=== PATIENT | male | born 1955 | race Caucasian/White ===

== ENCOUNTER → 2020-05-05 | Outpatient (CLI) | payer BC ==
[2020-05-05 08:36] LABS: URINE WBC 0 /hpf (0-3)
[2020-05-05 08:57] LABS: HEMATOCRIT 44.3 % (42.0-52.0); HEMOGLOBIN 14.4 g/dL (13.5-18.0); MEAN CELL VOLUME 83 fl (78-100); MEAN CORPUSCULAR HEMOGLOBIN 27 pg (27-31); MEAN CORPUSCULAR HGB CONC 33 g/dL (33-37); MEAN PLATELET VOLUME 11.6 fl (7.4-10.4); PLATELET COUNT 210 K/mm3 (130-400); RED BLOOD COUNT 5.37 M/mm3 (4.20-5.60); RED CELL DISTRIBUTION WIDTH 13.8 % (11.5-14.5); WHITE BLOOD COUNT 5.3 K/mm3 (4.8-10.8)
[2020-05-05 09:03] LABS: ALBUMIN 4.3 g/dL (3.4-4.8); POTASSIUM 4.2 mmol/L (3.5-5.1)
[2020-05-05 09:04] LABS: CALCIUM 9.4 mg/dL (8.3-10.5)
[2020-05-05 09:06] LABS: TOTAL PROTEIN 7.3 g/dL (6.2-8.1)
[2020-05-05 09:08] LABS: TOTAL BILIRUBIN 0.5 mg/dL (0.2-1.2)
[2020-05-05 09:12] LABS: MAGNESIUM 1.76 mg/dL (1.60-2.60)
[2020-05-05 09:17] LABS: URINE APPEARANCE CLEAR; URINE BILIRUBIN NEGATIVE (NEGATIVE); URINE BLOOD NEGATIVE (NEGATIVE); URINE COLOR YELLOW; URINE GLUCOSE NEGATIVE (NEGATIVE); URINE KETONE NEGATIVE (NEGATIVE); URINE LEUKOCYTE ESTERASE NEGATIVE (NEGATIVE); URINE NITRATE NEGATIVE (NEGATIVE); URINE PROTEIN(semi-quant) TRACE mg/dL (NEGATIVE); URINE UROBILINOGEN NORMAL (NORMAL)
[2020-05-05 10:06] LABS: LYMPHOCYTE 33 % (20-51); MONOCYTE 10 % (3-10); NEUTROPHILS 56 % (42-75)
[2020-05-05 12:16] LABS: ERYTHROCYTE SEDIMENTATION RATE 6 mm/hr (0-20)
[2020-05-05 22:56] LABS: TESTOSTERONE 362 ng/dL (221-716)
== END ==
LOC: LAB 08:25
PROVIDERS: Internal Medicine
DX: Z12.11 Encounter for screening for malignant neoplasm of colon (principal); Z12.5 Encounter for screening for malignant neoplasm of prostate; E11.9 Type 2 diabetes mellitus without complications; E78.2 Mixed hyperlipidemia; K90.9 Intestinal malabsorption, unspecified; N52.9 Male erectile dysfunction, unspecified; Z86.79 Personal history of other diseases of the circulatory system

== ENCOUNTER → 2020-05-09 | Outpatient (CLI) | payer MEDICARE, BC | LOC: LAB 13:38 | DX: Z12.11 Encounter for screening for malignant neoplasm of colon (principal) ==

== ENCOUNTER → 2020-08-22 | Outpatient (CLI) | payer MEDICARE, BC ==
[2020-08-22 07:15] LABS: BASO # 0.03 (0.02-0.10); EOS # 0.16 (0.04-0.40); HEMATOCRIT 40.4 % (42.0-52.0); HEMOGLOBIN 13.4 g/dL (13.5-18.0); LYMPH# 1.52 (1.50-4.00); MEAN CELL VOLUME 84 fl (78-100); MEAN CORPUSCULAR HEMOGLOBIN 28 pg (27-31); MEAN CORPUSCULAR HGB CONC 33 g/dL (33-37); MEAN PLATELET VOLUME 11.2 fl (7.4-10.4); MONO # 0.53 (0.20-0.80); NEU # 3.16 (1.40-6.50); PLATELET COUNT 186 K/mm3 (130-400); RED BLOOD COUNT 4.84 M/mm3 (4.20-5.60); RED CELL DISTRIBUTION WIDTH 13.7 % (11.5-14.5); WHITE BLOOD COUNT 5.4 K/mm3 (4.8-10.8)
[2020-08-22 07:35] LABS: ALBUMIN 4.1 g/dL (3.4-4.8); POTASSIUM 3.9 mmol/L (3.5-5.1)
[2020-08-22 07:37] LABS: TOTAL PROTEIN 6.9 g/dL (6.2-8.1)
[2020-08-22 07:39] LABS: TOTAL BILIRUBIN 0.5 mg/dL (0.2-1.2)
== END ==
LOC: LAB 07:01
PROVIDERS: Internal Medicine
DX: E11.9 Type 2 diabetes mellitus without complications (principal); Z86.79 Personal history of other diseases of the circulatory system

== ENCOUNTER → 2020-11-25 | Outpatient (CLI) | payer MEDICARE, BC ==
[2020-11-25 08:24] LABS: BASO # 0.02 (0.02-0.10); EOS # 0.09 (0.04-0.40); EOS % 1.7 % (0.0-4.0); HEMOGLOBIN 14.7 g/dL (13.5-18.0); LYMPH# 1.46 (1.50-4.00); MEAN CELL VOLUME 85 fl (78-100); MEAN CORPUSCULAR HEMOGLOBIN 28 pg (27-31); MEAN CORPUSCULAR HGB CONC 33 g/dL (33-37); MEAN PLATELET VOLUME 11.4 fl (7.4-10.4); MONO # 0.44 (0.20-0.80); NEU # 3.32 (1.40-6.50); PLATELET COUNT 200 K/mm3 (130-400); POTASSIUM 3.9 mmol/L (3.5-5.1); RED BLOOD COUNT 5.28 M/mm3 (4.20-5.60); RED CELL DISTRIBUTION WIDTH 12.9 % (11.5-14.5); WHITE BLOOD COUNT 5.3 K/mm3 (4.8-10.8)
[2020-11-25 08:25] LABS: ALBUMIN 4.2 g/dL (3.4-4.8)
[2020-11-25 08:27] LABS: TOTAL PROTEIN 7.3 g/dL (6.2-8.1)
[2020-11-25 08:29] LABS: TOTAL BILIRUBIN 0.6 mg/dL (0.2-1.2)
[2020-11-25 09:39] LABS: ERYTHROCYTE SEDIMENTATION RATE 4 mm/hr (0-20)
== END ==
LOC: LAB 07:39
PROVIDERS: Internal Medicine
DX: Z11.52 Encounter for screening for COVID-19 (principal); E78.2 Mixed hyperlipidemia; E11.9 Type 2 diabetes mellitus without complications; K90.9 Intestinal malabsorption, unspecified

== ENCOUNTER → 2021-02-09 | Day surgery (SDC) | payer MEDICARE, BC | LOC: MSO 08:05 | DX: Z12.11 Encounter for screening for malignant neoplasm of colon (principal); K57.30 Diverticulosis of large intestine without perforation or abscess without bleeding; I10 Essential (primary) hypertension; K21.9 Gastro-esophageal reflux disease without esophagitis; E11.9 Type 2 diabetes mellitus without complications; Z86.010 Personal history of colon polyps; Z85.828 Personal history of other malignant neoplasm of skin; Z79.4 Long term (current) use of insulin; Z79.899 Other long term (current) drug therapy; Z83.71 Family history of colonic polyps | CPT/HCPCS: 00812; J2704; J7120 ==

== ENCOUNTER → 2021-02-24 | Outpatient (CLI) | payer MEDICARE, BC | LOC: LAB 08:03 | DX: E11.9 Type 2 diabetes mellitus without complications (principal); E78.2 Mixed hyperlipidemia ==

== ENCOUNTER → 2021-05-06 | Outpatient (CLI) | payer MEDICARE, BC | LOC: LAB 08:22 | DX: Z20.822 Contact with and (suspected) exposure to COVID-19 (principal) ==

== ENCOUNTER → 2021-07-11 | Outpatient (CLI) | payer MEDICARE, BC ==
[2021-07-11 08:25] LABS: BASO # 0.02 K/mm3 (0.02-0.10); EOS # 0.14 K/mm3 (0.04-0.40); EOS % 2.5 % (0.0-4.0); HEMATOCRIT 41.9 % (42.0-52.0); HEMOGLOBIN 14.3 g/dL (13.5-18.0); LYMPH# 1.52 K/mm3 (1.50-4.00); MEAN CELL VOLUME 83 fl (78-100); MEAN CORPUSCULAR HEMOGLOBIN 28 pg (27-31); MEAN CORPUSCULAR HGB CONC 34 g/dL (33-37); MEAN PLATELET VOLUME 10.9 fl (7.4-10.4); MONO # 0.57 K/mm3 (0.20-0.80); NEU # 3.42 K/mm3 (1.40-6.50); PLATELET COUNT 191 K/mm3 (130-400); RED BLOOD COUNT 5.06 M/mm3 (4.20-5.60); RED CELL DISTRIBUTION WIDTH 12.9 % (11.5-14.5); WHITE BLOOD COUNT 5.7 K/mm3 (4.8-10.8)
[2021-07-11 09:12] LABS: ALBUMIN 4.2 g/dL (3.4-4.8); POTASSIUM 4.2 mmol/L (3.5-5.1)
[2021-07-11 09:13] LABS: CALCIUM 9.3 mg/dL (8.3-10.5)
[2021-07-11 09:15] LABS: TOTAL PROTEIN 6.9 g/dL (6.2-8.1)
[2021-07-11 09:17] LABS: TOTAL BILIRUBIN 0.5 mg/dL (0.2-1.2)
[2021-07-11 09:54] LABS: URINE APPEARANCE CLEAR; URINE BILIRUBIN NEGATIVE (NEGATIVE); URINE BLOOD NEGATIVE (NEGATIVE); URINE COLOR YELLOW; URINE GLUCOSE NEGATIVE (NEGATIVE); URINE KETONE NEGATIVE (NEGATIVE); URINE LEUKOCYTE ESTERASE NEGATIVE (NEGATIVE); URINE NITRATE NEGATIVE (NEGATIVE); URINE PROTEIN(semi-quant) TRACE (NEGATIVE); URINE UROBILINOGEN NORMAL (NORMAL); URINE WBC 0-1 /hpf (0-3)
[2021-07-11 10:24] LABS: ERYTHROCYTE SEDIMENTATION RATE 5 mm/hr (0-20)
== END ==
LOC: LAB 07:50
PROVIDERS: Internal Medicine
DX: Z12.5 Encounter for screening for malignant neoplasm of prostate (principal); Z12.11 Encounter for screening for malignant neoplasm of colon; E11.9 Type 2 diabetes mellitus without complications; E78.2 Mixed hyperlipidemia; K90.9 Intestinal malabsorption, unspecified; Z86.79 Personal history of other diseases of the circulatory system

== ENCOUNTER → 2021-11-30 | Outpatient (CLI) | payer MEDICARE, BC ==
[2021-11-30 07:53] LABS: BASO # 0.03 K/mm3 (0.02-0.10); EOS # 0.09 K/mm3 (0.04-0.40); HEMATOCRIT 42.5 % (42.0-52.0); LYMPH# 1.54 K/mm3 (1.50-4.00); MEAN CELL VOLUME 85 fl (78-100); MEAN CORPUSCULAR HEMOGLOBIN 28 pg (27-31); MEAN CORPUSCULAR HGB CONC 33 g/dL (33-37); MEAN PLATELET VOLUME 10.9 fl (7.4-10.4); MONO # 0.45 K/mm3 (0.20-0.80); NEU # 2.34 K/mm3 (1.40-6.50); PLATELET COUNT 210 K/mm3 (130-400); RED BLOOD COUNT 5.03 M/mm3 (4.20-5.60); RED CELL DISTRIBUTION WIDTH 12.4 % (11.5-14.5); WHITE BLOOD COUNT 4.5 K/mm3 (4.8-10.8)
[2021-11-30 07:59] LABS: POTASSIUM 4.3 mmol/L (3.5-5.1)
[2021-11-30 08:00] LABS: ALBUMIN 4.2 g/dL (3.4-4.8)
[2021-11-30 08:01] LABS: CALCIUM 9.8 mg/dL (8.3-10.5)
[2021-11-30 08:02] LABS: TOTAL PROTEIN 7.2 g/dL (6.2-8.1)
[2021-11-30 08:04] LABS: TOTAL BILIRUBIN 0.7 mg/dL (0.2-1.2)
== END ==
LOC: LAB 07:27
PROVIDERS: Internal Medicine
DX: E78.2 Mixed hyperlipidemia (principal); E11.9 Type 2 diabetes mellitus without complications; Z86.79 Personal history of other diseases of the circulatory system

== ENCOUNTER → 2022-03-15 | Outpatient (CLI) | payer MEDICARE, BC ==
[2022-03-15 07:52] LABS: BASO # 0.02 K/mm3 (0.02-0.10); EOS # 0.09 K/mm3 (0.04-0.40); EOS % 1.9 % (0.0-4.0); HEMOGLOBIN 14.3 g/dL (13.5-18.0); LYMPH# 1.27 K/mm3 (1.50-4.00); MEAN CELL VOLUME 84 fl (78-100); MEAN CORPUSCULAR HEMOGLOBIN 28 pg (27-31); MEAN CORPUSCULAR HGB CONC 33 g/dL (33-37); MEAN PLATELET VOLUME 10.9 fl (7.4-10.4); MONO # 0.48 K/mm3 (0.20-0.80); NEU # 2.97 K/mm3 (1.40-6.50); PLATELET COUNT 199 K/mm3 (130-400); RED BLOOD COUNT 5.15 M/mm3 (4.20-5.60); RED CELL DISTRIBUTION WIDTH 13.3 % (11.5-14.5); WHITE BLOOD COUNT 4.8 K/mm3 (4.8-10.8)
[2022-03-15 07:56] LABS: ALBUMIN 4.3 g/dL (3.4-4.8); POTASSIUM 4.2 mmol/L (3.5-5.1)
[2022-03-15 07:58] LABS: CALCIUM 9.7 mg/dL (8.3-10.5)
[2022-03-15 07:59] LABS: TOTAL PROTEIN 7.1 g/dL (6.2-8.1)
[2022-03-15 08:01] LABS: TOTAL BILIRUBIN 0.8 mg/dL (0.2-1.2)
[2022-03-15 08:05] LABS: MAGNESIUM 1.61 mg/dL (1.60-2.60)
== END ==
LOC: LAB 07:34
PROVIDERS: Internal Medicine
DX: Z12.11 Encounter for screening for malignant neoplasm of colon (principal); E11.9 Type 2 diabetes mellitus without complications; Z86.79 Personal history of other diseases of the circulatory system

== ENCOUNTER → 2023-05-02 | Outpatient (CLI) | payer MEDICARE, BC | LOC: LAB 08:58 | DX: U07.1 COVID-19 (principal) ==

== ENCOUNTER 2023-11-28 16:16 | Emergency (ER) | payer OTHER, MEDICARE, BC ==
[~2023-11-28] VITALS: Ht 177.8 cm; Wt 96.8 kg
[2023-11-28] MEDS ORDERED: METFORMIN HYD1000 MG PO (17:48)
[2023-11-28] MEDS ORDERED: BASAGLAR K100 UNIT/1 SQ (17:48)
[2023-11-28] MEDS ORDERED: TRULICITY1.5 MG/0.5 SC (17:48)
[2023-11-28] MEDS ORDERED: HYDROCHLOROTH12.5 M2 PO (17:49)
[2023-11-28] MEDS ORDERED: PRILOSEC 20MG20 MG PO (17:49)
[2023-11-28] MEDS ORDERED: AMLODIPINE BESY1 C14 PO (17:49)
[2023-11-28] MEDS ORDERED: ROSUVASTATIN CAL5 MG PO (17:49)
[2023-11-28] MEDS ORDERED: FIASP 100100 UNIT/1 SQ (17:50)
[2023-11-28] MEDS ORDERED: Ketorolac 30 MG/ML VIAL IM ONE (18:00)
[2023-11-28 18:10] VITALS: BP 140/86
== END 2023-11-28 18:05 | disposition home or self-care (01) ==
LOC: ED 16:16
DX: S20.212A Contusion of left front wall of thorax, initial encounter (principal); V86.05XA Driver of 3- or 4- wheeled all-terrain vehicle (ATV) injured in traffic accident, initial encounter; Y92.410 Unspecified street and highway as the place of occurrence of the external cause

== ENCOUNTER → 2024-03-10 | Outpatient (CLI) | payer MEDICARE, BC ==
[~2024-03-10] MED LIST: AMLODIPINE BESY1 C14 PO; BASAGLAR K100 UNIT/1 SQ; FIASP 100100 UNIT/1 SQ; HYDROCHLOROTH12.5 M2 PO; METFORMIN HYD1000 MG PO; PRILOSEC 20MG20 MG PO; ROSUVASTATIN CAL5 MG PO; TRULICITY1.5 MG/0.5 SC
[2024-03-10 07:51] LABS: BASO # 0.01 K/mm3 (0.02-0.10); EOS # 0.11 K/mm3 (0.04-0.40); EOS % 2.1 % (0.0-4.0); HEMATOCRIT 42.8 % (42.0-52.0); HEMOGLOBIN 14.4 g/dL (13.5-18.0); LYMPH# 1.45 K/mm3 (1.50-4.00); MEAN CELL VOLUME 83 fl (78-100); MEAN CORPUSCULAR HEMOGLOBIN 28 pg (27-31); MEAN CORPUSCULAR HGB CONC 34 g/dL (33-37); MONO # 0.54 K/mm3 (0.20-0.80); NEU # 3.12 K/mm3 (1.40-6.50); PLATELET COUNT 204 K/mm3 (130-400); RED BLOOD COUNT 5.18 M/mm3 (4.20-5.60); RED CELL DISTRIBUTION WIDTH 12.7 % (11.5-14.5); WHITE BLOOD COUNT 5.2 K/mm3 (4.8-10.8)
[2024-03-10 08:04] LABS: ALBUMIN 4.3 g/dL (3.4-4.8)
[2024-03-10 08:05] LABS: CALCIUM 10.1 mg/dL (8.3-10.5)
[2024-03-10 08:08] LABS: TOTAL BILIRUBIN 0.6 mg/dL (0.2-1.2)
[2024-03-10 08:13] LABS: MAGNESIUM 1.73 mg/dL (1.60-2.60)
[2024-03-10 08:15] LABS: PH-URINE 5.5 (5.0 - 8.0); URINE APPEARANCE CLEAR (CLEAR); URINE BILIRUBIN NEGATIVE (NEGATIVE); URINE BLOOD NEGATIVE (NEGATIVE); URINE COLOR YELLOW (YELLOW); URINE GLUCOSE NEGATIVE (NEGATIVE); URINE KETONE NEGATIVE (NEGATIVE); URINE LEUKOCYTE ESTERASE NEGATIVE (NEGATIVE); URINE MUCUS PRESENT (NOT PRESENT); URINE NITRATE NEGATIVE (NEGATIVE); URINE PROTEIN(semi-quant) 1+ (NEGATIVE); URINE WBC 0-1 /hpf (0-3)
[2024-03-10 17:24] LABS: TESTOSTERONE 260 ng/dL (221-716)
== END ==
LOC: LAB 07:33
PROVIDERS: Internal Medicine
DX: Z12.11 Encounter for screening for malignant neoplasm of colon (principal); K90.9 Intestinal malabsorption, unspecified; E78.2 Mixed hyperlipidemia; Z86.79 Personal history of other diseases of the circulatory system; E23.0 Hypopituitarism; E11.9 Type 2 diabetes mellitus without complications

== ENCOUNTER → 2024-03-14 | Outpatient (CLI) | payer MEDICARE, BC | LOC: LAB 10:34 | DX: Z12.11 Encounter for screening for malignant neoplasm of colon (principal); E78.2 Mixed hyperlipidemia; E23.0 Hypopituitarism; E11.9 Type 2 diabetes mellitus without complications; K90.9 Intestinal malabsorption, unspecified; Z86.79 Personal history of other diseases of the circulatory system ==